=== PATIENT | male | born 1960 | race Hispanic/Latino ===

== ENCOUNTER 2018-06-05 06:06 | Day surgery (SDC) | payer BC ==
[2018-05-31 08:12] VITALS: BMI 45.6
[2018-06-05] MEDS ORDERED: Lidocaine PF 2% (5 ml) Inj (For Cardiac Arrhy) ONE (07:04)
[2018-06-05] MEDS ORDERED: Iohexol 350mgl/ml 50 ML ONE (07:05)
[2018-06-05] MEDS ORDERED: Iodixanol 320 MG/ML 100 ML BOTTLE IV ONE (07:05)
[2018-06-05] MEDS ORDERED: Iodixanol 320 MG/ML 200 ML BOTTLE IV ONE (07:05)
[2018-06-05] MEDS ORDERED: Phenylephrine 10 mg/ml Inj ONE (07:06)
[2018-06-05] MEDS ORDERED: Nitroglycerin 50mg in D5W 50 MG/250 ML BOTTLE IV ONE (07:09)
[2018-06-05] MEDS ORDERED: Midazolam 2 MG/2 ML VIAL ONE (07:32)
[2018-06-05] MEDS ORDERED: Sodium Chloride 0.45% 1,000 ML IV SCH (08:15)
[2018-06-05 08:49] VITALS: RESP 18; TEMP 97.1
--- NOTE | 2018-06-05 10:57 | CARDCATH ---
PROCEDURE DATE: 06/05/2018 PROCEDURE: 1. Right and left heart catheterization. 2. Right and left coronary angiography. 3. Left ventriculography. 4. Right femoral arteriography. 5. Angio-Seal deployment. HISTORY: This is a 57-year-old man with a history of hypertension, diabetes and strong family history of premature heart disease who has had worsening exertional dyspnea. Given his impressive symptoms of recent onset and strong family history a cardiac catheterization was advised. INDICATION: Exertional dyspnea. Multiple cardiac risk factors FINDINGS: HEMODYNAMIC RESULTS: The right heart pressures were as follows. RA of 5, RV 35/2, PA 33/10 with pulmonary artery wedge pressure of 8. Cardiac output by thermodilution method was 5.7 liters per minute with cardiac index of 2.1 liters minute per meter square. CORONARY ANATOMY: 1. The left mainstem was normal. 2. Left anterior descending artery has branches were normal. 3. The ramus branch was normal as well. 4. Left circumflex artery gave rise to one small obtuse marginal branch and left circumflex artery had minimal irregularities. 5. Right coronary artery was large, dominant and normal. LEFT VENTRICULOGRAPHY: A hand injection was performed in the left ventricle which revealed relatively normal LV systolic function with an ejection fraction of 55%. There was no aortic valve gradient on catheter pullback. Left ventricular end-diastolic pressure was 14. RIGHT FEMORAL ARTERIOGRAPHY: Right femoral arteriogram was performed in the DAVIS projection. This revealed no evidence of significant disease and appropriate level of arterial puncture. The puncture site was then closed with deployment of an Angio-Seal device. CONCLUSION: 1. No significant obstructive coronary artery disease. 2. Normal LV systolic function. 3. Normal right heart pressures. RECOMMENDATIONS: Given the above findings, a workup for noncardiac causes of dyspnea should proceed. Aggressive weight loss measures and treatment of sleep apnea is advised. Continue control of risk factors is recommended as well. Anatoliy Howell MD cc: Dr. Noble Holloway.
[2018-06-05 11:00] VITALS: O2SAT 94
[2018-06-05 12:07] VITALS: BP 146/78; PULSE 48
== END 2018-06-05 12:46 | disposition home or self-care (01) ==
LOC: CATH 06:06
PROVIDERS: ATTEND Internal Medicine Cardiovascular Disease
DX: R06.09 Other forms of dyspnea (principal); I10 Essential (primary) hypertension; E11.9 Type 2 diabetes mellitus without complications; E66.9 Obesity, unspecified; Z68.42 Body mass index [BMI] 45.0-49.9, adult; Z98.84 Bariatric surgery status; Z82.49 Family history of ischemic heart disease and other diseases of the circulatory system
CPT/HCPCS: 36415; 86850; 86900; 93460; 99152; C1760; C1769; C1894; C2629; J1644; J2250; J3010; J7030; Q9966